=== PATIENT | female | born 1975 | race Native Hawaiian/Other Pacific Islander ===

== ENCOUNTER 2025-02-08 12:59 | Outpatient (REF) | payer OTHER, SELFPAY ==
--- NOTE | ~2025-02-08 | XR_ITS ---
EXAMINATION: XR LUMBOSACRAL SPINE CLINICAL INFORMATION: M54.50 - Low back pain, unspecified COMPARISON: None available. TECHNIQUE: AP and lateral views FINDINGS: Patient's large body habitus. Patient's motion artifact. Small marginal osteophyte formation at multiple levels of the lower thoracic and lumbar spine. No acute fracture or listhesis. No lytic or blastic lesions. There is a single neurostimulator electrode overlapping the left hemisacrum extending from L5 into left S3-4 level. There is a metallic reservoir in the left gluteal region. Vascular clips right upper quadrant abdomen. XR/XR lumbar spine 2-3V IMPRESSION: Mild multilevel thoracolumbar spondylosis. Single neurostimulator electrode at left S3-4 level. EXAMINATION: XR CERVICAL SPINE CLINICAL INFORMATION: M54.2 -cervicalgia. COMPARISON: None available. TECHNIQUE: AP, lateral, swimmer's projection and atlantoodontoid views. FINDINGS: Craniocervical junction is intact. Large marginal osteophyte formation and syndesmophyte formation at C4-5 and C5-6 level. Decreased intervertebral disc height at multiple levels pronounced at C5-6. No acute cortical disruption or malalignment. No lytic or blastic lesions. IMPRESSION: Multilevel spondylosis C4 C7, pronounced at C5-6. Electronically signed by: Irwin William MD 02/08/2025 02:39 PM [facility]
--- NOTE | ~2025-02-08 | XR_ITS ---
EXAMINATION: XR LUMBOSACRAL SPINE CLINICAL INFORMATION: M54.50 - Low back pain, unspecified COMPARISON: None available. TECHNIQUE: AP and lateral views FINDINGS: Patient's large body habitus. Patient's motion artifact. Small marginal osteophyte formation at multiple levels of the lower thoracic and lumbar spine. No acute fracture or listhesis. No lytic or blastic lesions. There is a single neurostimulator electrode overlapping the left hemisacrum extending from L5 into left S3-4 level. There is a metallic reservoir in the left gluteal region. Vascular clips right upper quadrant abdomen. XR/XR cervical spine 5V IMPRESSION: Mild multilevel thoracolumbar spondylosis. Single neurostimulator electrode at left S3-4 level. EXAMINATION: XR CERVICAL SPINE CLINICAL INFORMATION: M54.2 -cervicalgia. COMPARISON: None available. TECHNIQUE: AP, lateral, swimmer's projection and atlantoodontoid views. FINDINGS: Craniocervical junction is intact. Large marginal osteophyte formation and syndesmophyte formation at C4-5 and C5-6 level. Decreased intervertebral disc height at multiple levels pronounced at C5-6. No acute cortical disruption or malalignment. No lytic or blastic lesions. IMPRESSION: Multilevel spondylosis C4 C7, pronounced at C5-6. Electronically signed by: Irwin William MD 02/08/2025 02:39 PM [facility]
[2025-02-08 14:54] LABS: MANUAL DIFF FLAG NO
[2025-02-08 15:03] LABS: Hematocrit 46.2 % (37.0-47.0); Hemoglobin 15.4 g/dl (12.0-16.0); Imm Gran Abs Auto 0.04 X10*3/uL (0.00-0.03); Imm Gran Pct Auto 0.4 % (0.0-0.4); Lymphocytes Absolute Auto 2.6 X10*3/uL (1.2-4.9); Mean Corpuscular HGB Conc 33.3 g/dl (31.0-35.0); Mean Corpuscular Hemoglobin 30.0 pg (27.0-33.0); Mean Corpuscular Volume 90.1 fL (80.0-98.0); NRBC Abs Auto 0.000 X10*3/uL (0.0-0.012); NRBC Pct Auto 0.0 /100WBC (0.0-0.2); Platelet Count 302 X10*3/uL (160-400); Red Blood Count 5.13 X10*6/uL (4.20-5.50); White Blood Count 8.9 X10*3/uL (4.8-10.8)
[2025-02-08 15:31] LABS: Alanine Aminotransferase 53 U/L (0-31); Albumin Level 4.1 g/dL (3.5-5.0); Alkaline Phosphatase 119 U/L (39-117); Anion Gap 12 (12-20); Aspartate Amino Transferase 53 U/L (5-31); Blood Urea Nitrogen 8 mg/dL (9-16); Calcium 9.2 mg/dL (8.4-10.2); Carbon Dioxide 26 mmol/L (22-29); Chloride 104 mmol/L (96-108); Cholesterol 214 mg/dL (<200); Estimated Glomerular Filt Rate > 60; HDL Cholesterol 52 mg/dL (>40); Iron 96 mcg/dL (30-160); Percent Iron Saturation 28 % (15-50); Potassium 4.5 mmol/L (3.3-5.1); Sodium 137 mmol/L (135-145); Total Iron Binding Capacity 337 mcg/dL (228-428); Total Protein 7.8 g/dL (6.5-8.0); Triglycerides 132 mg/dL (<150); Unsaturated Iron Binding 241 ug/dL
[2025-02-08 15:46] LABS: Ferritin 44 ng/mL (10-250)
[2025-02-08 16:09] LABS: Microalbum/Creatinine Ratio Ur 12.8 ug/mg cr (<30)
== END 2025-02-08 13:00 | disposition home or self-care (01) ==
LOC: HO.LAB 12:59
PROVIDERS: PCP Internal Medicine; Visit Provider Internal Medicine
DX: I10 Essential (primary) hypertension (principal); M54.2 Cervicalgia; E55.9 Vitamin D deficiency, unspecified; D50.9 Iron deficiency anemia, unspecified; E78.5 Hyperlipidemia, unspecified; G43.909 Migraine, unspecified, not intractable, without status migrainosus; M54.50 Low back pain, unspecified; E11.65 Type 2 diabetes mellitus with hyperglycemia; G47.33 Obstructive sleep apnea (adult) (pediatric); G89.29 Other chronic pain; Z23 Encounter for immunization; Z13.31 Encounter for screening for depression; Z13.39 Encounter for screening examination for other mental health and behavioral disorders
CPT/HCPCS: 36415; 72050; 72100; 80053; 80061; 82043; 82306; 82570; 82728; 83036; 83540; 84443; 85025; 90471; 90656; 99212

== ENCOUNTER 2025-02-08 12:59 | Outpatient (AMB) | payer OTHER, SELFPAY ==
--- NOTE | 2025-02-08 13:02 | A.OFFPC_ITS ---
Vital Signs 02/08/25 13:07 Weight 254 lb BP 128/84 Blood Pressure Location Rt brachial Position Sitting Pulse 85 Pulse Source Pulse Oximeter Temp 96.4 F L Temp Source Temporal Artery Scan Pulse Oximetry (%) 96 Oxygen Delivery Method Room Air Intake Visit Reasons: 3 month f/u-Zoie pt Accompanied by: grandmother Allergies No Known Allergies Allergy (Verified 02/08/25 13:03) Medication List - Last Reconciled 02/08/25 by Aura Lino MD amitriptyline 30 mg PO BEDTIME ammonium lactate 12% topical DAILY clotrimazole 1% appl topical BID PRN empagliflozin (Jardiance) 10 mg PO QAM fluoxetine 20 mg PO BID fluvoxamine 100 mg PO QPM gabapentin 900 mg PO BID loratadine 10 mg PO DAILY metformin ER 500 mg PO BID metoprolol tartrate 50 mg PO BID montelukast 10 mg PO DAILY oxycodone 5 mg PO BEDTIME PRN rizatriptan mg PO trazodone 100 mg PO BEDTIME triamcinolone acetonide 0.1% appl topical Tobacco use date assessed: 02/08/25 Dental Screening Dental Screen Date: 02/08/25 Did you have a dental visit in the last 12 months?: Yes Was dental information given to patient?: Patient has dentist HPI HPI Comments History of Present Illness Details The patient is a 49-year-old female presenting to [facility] and for management of multiple chronic conditions. Type 2 Diabetes Mellitus: The patient reports her blood sugars are elevated, which she attributes to high levels of stress. She has had difficulty obtaining refills for her Jardiance from pharmacy. Chronic Pain: The patient has a history of fibromyalgia, managed with gabapentin. She also reports severe [id number] back pain with spasms, which recently was so severe she could barely walk and had to use a walker. She went to the emergency department at [facility] for this pain but left before receiving complete treatment, though she was given Toradol and Valium. Additionally, the patient complains of significant neck pain with pulling sensations and spasms, primarily on right side, which limits her ability to turn her head and makes daily activities like styling her hair difficult. She has had physical therapy for her neck in the past. Psychiatric Conditions: The patient reports extreme stress related to significant family issues, including taking custody of her nephew. She sees a therapist weekly and is managed by a psychiatrist. She has excoriation disorder (skin picking), for which she takes fluvoxamine, but notes it is not helping. Her sleep is poor, and she takes amitriptyline for sleep and migraines, as well as trazodone from her psychiatrist. She was previously on duloxetine and fluoxetine (Prozac); fluoxetine has been discontinued. Obstructive Sleep Apnea: The patient uses her CPAP machine every night and reports she is compliant. She is followed by a sleep specialist. Medical History: - Type 2 diabetes mellitus - Hypertension - Obstructive sleep apnea - Fibromyalgia - Chronic low back and neck pain - Migraines - Anxiety disorder - Excoriation (skin-picking) disorder - Insomnia Surgical History: - Sleeve gastrectomy (2018) Medications: - Gabapentin for fibromyalgia (prescribe d as three in the morning, three at night) - Amitriptyline 30 mg at bedtime for tae delma and sleep - Jardiance for diabetes - Metformin 500 mg twice a day for diabe elysia - Trazodone for sleep (prescribed by cindy chiatrist) - Fluvoxamine 100 mg and 50 mg for skin- picking disorder - Metoprolol 50 mg twice a day for hyper tension - Loratadine for allergies Social History: - The patient is experiencing extreme st ress due to family circumstances, including recently taking custody of her 15-year-old nephew following traumatic events. 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 - Reports eating only once a day due to stress. - Functional Status: Recently required a walker due to severe back pain. - Mental Health: Sees a therapist weekly . [facility] Medical History (Updated 02/08/25 @ 14:14 by Aura Lino MD) BAKARI (obstructive sleep apnea) Nonalcoholic fatty liver disease Neck pain Lower back pain Vitamin D deficiency Iron deficiency anemia Hyperlipidemia, unspecified Primary hypertension Migraines Fibromyalgia Diabetes mellitus Surgical History (Updated 02/08/25 @ 13:47 by Aura Lino MD) History of sleeve gastrectomy History of colonoscopy (~01/28/23) Family History (Updated 02/08/25 @ 13:14 by Aura Lino MD) Mother No problems noted. Father No problems noted. Other Dementia Social History Housing: Apartment Patient Tobacco Use Status: Never used Tobacco service: No Current occupational status: disabled Cognitive needs: Yes (cane) Hearing needs: No Vision needs: Yes (rx glasses) Questionnaire PHQ-9 Over the last 2 weeks, how often have you been bothered by any of the following problems? 1. Little interest or pleasure in doing things: more than half the days 2. Feeling down, depressed, or hopeless: more than half the days 3. Trouble falling or staying asleep, or sleeping too much: nearly every day 4. Feeling tired or having little energy: nearly every day 5. Poor appetite or overeating: nearly every day 6. Feeling bad about yourself - or that you are a failure or have let yourself or your family down: several days 7. Trouble concentrating on things, such as reading the newspaper or watching television: more than half the days 8. Moving or speaking so slowly that other people could have noticed. Or the opposite - being so fidgety or restless that you have been moving around a lot more than usual: not at all 9. Thoughts that you would be better off or of hurting yourself in some way: not at all Total score: 16 Depression Screening Interpretation: Positive Depression Screening Follow-up: In treatment Depression Screening Done: Yes Source: Developed by Drs. Lewis Lux, Colleen Vergara, Jere Velásquez and colleagues, with an educational kaiden from [employer]. Thrive Questionnaire Date Thrive assessed: 02/08/25 I am a: Patient What is your living situation today?: I have a steady place to live Within the past 12 months, did the food you bought not last and you didn't have the money to get more?: Often true Within the past 12 months, did you worry whether your food would run out before you got money to buy more?: Often true Do you have trouble paying for medicines?: No Do you have trouble getting transportation to medical appointments?: No Do you have trouble paying your heating and electricity bill?: No Do you have trouble taking care of your child, family member or friend?: Yes Do you have trouble with day-to-day activities such as bathing, preparing meals, shopping, managing finances, etc.?: Yes Are you currently unemployed and looking for a job?: No Are you interested in more education?: No THRIVE Score: 2 AUDIT C Alcohol Use Questionnaire (AUDIT-C) 2. How many drinks containing alcohol do you have on a typical day when you are drinking?: 1 or 2 3. How often do you have six or more drinks on one occasion?: Never Total Score: 0 ZUNILDA-7 AMB Questionnaire ZUNILDA-7 Date ZUNILDA - 7 assessed: 02/08/25 Source: Developed by Drs. Lewis Lux, Colleen Vergara, Jere Velásquez and colleagues, with an educational kaiden from [employer]. Review of Systems Narrative Review of Systems - Constitutional: Reports poor oral intake, eating only once per day. - Psychiatric: Reports significant stress ( a 1000 ), compulsive skin picking, and poor sleep. - Musculoskeletal: Reports severe, spasmodic pain in the [id number] back that recently required use of a walker. - Reports severe neck pain with pulling and spasms, limiting range of motion. - Neurological: Reports occasional numbness or tingling in the hands. Physical exam (Primary Care) Vital Signs: Last Vital Signs Temp 96.4 F L 02/08/25 13:07 Pulse 85 02/08/25 13:07 BP 128/84 02/08/25 13:07 Pulse Ox 96 02/08/25 13:07 Oxygen Delivery Method Room Air 02/08/25 13:07 Tobacco/Smoking Status: Tobacco use Status Tobacco use date assessed 02/08/25 02/08/25 13:04 Patient Tobacco Use Status Never used Tobacco 02/08/25 13:04 PHQ-9: PHQ-9 Score PHQ-9: Total score 16 02/08/25 14:14 Depression Screening Interpretation: Positive Depression Screening Follow-up: In treatment Thrive Assessment: Date of Thrive Assessment Date Thrive assessed 02/08/25 02/08/25 13:04 Narrative Physical Exam - General: Patient appears to have some inflammation on examination. - Cardiovascular: Normal rate and rhythm, normal heart sounds. A soft murmur is audible. - Lungs: Clear to auscultation bilaterally. - Abdomen: Soft, non-tender to palpation, normoactive bowel sounds. - Extremities: no edema bilaterally Office Procedures Flu Questionnaire Does the patient have a severe egg allergy?: No Does the patient have severe life threatening allergies?: No Does the patient have a fever or illness today?: No Has the patient ever had Guillain-Newfield Syndrome?: No Has the patient ever had any past reaction to a flu shot?: No Immunizations Fluarix [id number] (PF) 45 mcg (15 mcg x 3)/0.5 mL IM syringe Performing Provider: Aura Lino MD Performing Location: [facility] HD Administered by: Lin Mejía CMA on 02/08/25 13:19 Dose Route Admin Location Dispensed Lot Number Expiration Date NDC Instrument Man 0.5 mL IM Right Deltoid 0.5 mL [id number] 09/21/25 09771-351-23 [employer] VIS Given Date VIS Provided VIS Publication Date 02/08/25 Single Vaccine 24 Eligibility Eligibility Date Funding Source Not [facility] Eligible 02/08/25 Private Coding Level of Care Code Est Pt Level 4 (60742) Complex EM visit Add On G2211 Diagnoses Type 2 diabetes mellitus with hyperglycemia, without long-term current use of insulin E11.65 Diabetes mellitus complication status: with hyperglycemia Diabetes mellitus shelter insulin use: without wool washer feeder use Diabetes mellitus type: type 2 Migraine without status migrainosus, not intractable, unspecified migraine type G43.909 Intractability: not intractable Migraine type: unspecified Status migrainosus presence: without status migrainosus Primary hypertension I10 Hyperlipidemia, unspecified hyperlipidemia type E78.5 Hyperlipidemia type: unspecified Lower back pain M54.50 Back pain laterality: bilateral Chronicity: chronic Sciatica laterality: sciatica laterality unspecified Neck pain M54.2 BAKARI (obstructive sleep apnea) G47.33 Assessment & Plan Assessment & Plan (1) Diabetes mellitus: Code(s): E11.9 - Type 2 diabetes mellitus without complications Category: Medical Qualifiers: Diabetes mellitus complication status: with hyperglycemia Diabetes mellitus shelter insulin use: without shelter use Diabetes mellitus type: type 2 Qualified Code(s): E11.65 - Type 2 diabetes mellitus with hyperglycemia (2) Migraines: Code(s): G43.909 - Migraine, unspecified, not intractable, without status migrainosus Category: Medical Qualifiers: Intractability: not intractable Migraine type: unspecified Status migrainosus presence: without status migrainosus Qualified Code(s): G43.909 - Migraine, unspecified, not intractable, without status migrainosus (3) Primary hypertension: Code(s): I10 - Essential (primary) hypertension Category: Medical (4) Hyperlipidemia, unspecified: Code(s): E78.5 - Hyperlipidemia, unspecified Category: Medical Qualifiers: Hyperlipidemia type: unspecified Qualified Code(s): E78.5 - Hyperlipidemia, unspecified (5) Lower back pain: Code(s): M54.50 - Low back pain, unspecified Category: Medical Qualifiers: Back pain laterality: bilateral Chronicity: chronic Sciatica laterality: sciatica laterality unspecified (6) Neck pain: Code(s): M54.2 - Cervicalgia Category: Medical (7) BAKARI (obstructive sleep apnea): Code(s): G47.33 - Obstructive sleep apnea (adult) (pediatric) Category: Medical Plan Assessment and Plan 1. Medication Management - Plan: Taper and discontinue duloxetine 60 mg by taking it every other day. - The patient will investigate using [facility] for bubble-packed medications to improve organization and adherence. 2. Chronic Pain (Neck and Back) - The patient is experiencing a severe exacerbation of chronic back pain and functionally limiting chronic neck pain. - Her history with prior pain management clinics has been unsatisfactory. - Plan: Order cervical and lumbar spine X-rays for today. - Refer to Dr. Garcia for pain management. 3. Type 2 Diabetes Mellitus - Likely poorly controlled due to stress and medication non-adherence. - Plan: Order comprehensive labs including A1c, cholesterol panel, and a urine microalbumin - Refill Jardiance and metformin. 4. Psychiatric Conditions (Anxiety, Depression, Insomnia, Excoriation Disorder) - The patient is under extreme psychosocial stress. - Her skin picking continues despite being on fluvoxamine. - Plan: Patient to continue follow-up with her psychiatrist and therapist. 5. Follow-up - Plan: Follow up in 3 months to review progress with specialists. Plan - Discontinue duloxetine by tapering (taking every other day) due to interaction with fluvoxamine. - Order comprehensive labs today, including A1c, cholesterol, BMP, and a urine microalbumin. - Order X-rays of the lumbar and cervical spine - Place a referral to pain management/physiatry [place] location - Plan to follow up in 3 months. Discussion Notes I had a detailed discussion with the patient, acknowledging the significant life stressors affecting her health and the challenges she has faced with medication management. We reviewed her medication list and identified the need to taper her off duloxetine due to an interaction; I advised her not to stop it abruptly. We formulated a plan to simplify her regimen by sending 30-day prescriptions now and arranging a switch to bubble-packed medications through a new pharmacy. Patient Instructions - Go to the lab to have your blood drawn and provide a urine sample today. - Please also get the X-rays of your neck and lower back completed today at the imaging center there. - Begin to lower your dose of duloxetine by taking it every other day instead of every day. Do not stop taking it completely all at once. - Expect a call from pain management office within the next two weeks to schedule an appointment. Orders: Orders Complete Blood Count Auto Diff Today D50.9 - Iron deficiency anemia, unspecified, E11.9 - Type 2 diabetes mellitus without complications, E78.5 - Hyperlipidemia, unspecified, G43.909 - Migraine, unspecified, not intractable, without status migrainosus, I10 - Essential (primary) hypertension Lipid Panel Today D50.9 - Iron deficiency anemia, unspecified, E11.9 - Type 2 diabetes mellitus without complications, E78.5 - Hyperlipidemia, unspecified, G43.909 - Migraine, unspecified, not intractable, without status migrainosus, I10 - Essential (primary) hypertension Ferritin Today D50.9 - Iron deficiency anemia, unspecified, E11.9 - Type 2 diabetes mellitus without complications, E78.5 - Hyperlipidemia, unspecified, G43.909 - Migraine, unspecified, not intractable, without status migrainosus, I10 - Essential (primary) hypertension TSH reflex Free T4 Today D50.9 - Iron deficiency anemia, unspecified, E11.9 - Type 2 diabetes mellitus without complications, E78.5 - Hyperlipidemia, unspecified, G43.909 - Migraine, unspecified, not intractable, without status migrainosus, I10 - Essential (primary) hypertension Hemoglobin A1c Today D50.9 - Iron deficiency anemia, unspecified, E11.9 - Type 2 diabetes mellitus without complications, E78.5 - Hyperlipidemia, unspecified, G43.909 - Migraine, unspecified, not intractable, without status migrainosus, I10 - Essential (primary) hypertension Vitamin D 25-OH Total Today E55.9 - Vitamin D deficiency, unspecified XR lumbar spine 2-3V Today M54.50 - Low back pain, unspecified XR cervical spine 5V Today M54.2 - Cervicalgia Influenza [id number] Immunization Today Z23 - Encounter for immunization Comprehensive Met. Panel Today D50.9 - Iron deficiency anemia, unspecified, E11.9 - Type 2 diabetes mellitus without complications, E78.5 - Hyperlipidemia, unspecified, G43.909 - Migraine, unspecified, not intractable, without status migrainosus, I10 - Essential (primary) hypertension IRON PROFILE Today D50.9 - Iron deficiency anemia, unspecified, E11.9 - Type 2 diabetes mellitus without complications, E78.5 - Hyperlipidemia, unspecified, G43.909 - Migraine, unspecified, not intractable, without status migrainosus, I10 - Essential (primary) hypertension Microalbumin, Random (w Creat) Today D50.9 - Iron deficiency anemia, unspecified, E11.9 - Type 2 diabetes mellitus without complications, E78.5 - Hyperlipidemia, unspecified, G43.909 - Migraine, unspecified, not intractable, without status migrainosus, I10 - Essential (primary) hypertension Referrals Physiatry Referral M54.2 - Cervicalgia, M54.50 - Low back pain, unspecified Medications: New empagliflozin (Jardiance) 10 mg PO QAM 30 tabs 5RF amitriptyline usually prescribed by neurologist 30 mg (3 x 10 mg) PO BEDTIME 30 tabs 0RF metoprolol tartrate 50 mg PO BID 60 tabs 5RF 30 days rizatriptan 10 mg PO ONCE 10 tabs 5RF gabapentin 900 mg (3 x 300 mg) PO BID 180 caps 5RF 30 days metformin ER 500 mg PO BID 60 tabs 5RF
[2025-02-08 13:07] VITALS: BP 128/84; PULSE 85; TEMP 35.8; O2SAT 96
== END 2025-02-08 14:00 | disposition home or self-care (01) ==
LOC: HO.HMCHD 12:59
PROVIDERS: PCP Internal Medicine; Visit Provider Internal Medicine
DX: E11.65 Type 2 diabetes mellitus with hyperglycemia (principal); G43.909 Migraine, unspecified, not intractable, without status migrainosus; I10 Essential (primary) hypertension; E78.5 Hyperlipidemia, unspecified; M54.50 Low back pain, unspecified; M54.2 Cervicalgia; G47.33 Obstructive sleep apnea (adult) (pediatric); Z23 Encounter for immunization

== ENCOUNTER → 2025-02-08 14:13 | Outpatient (BNV) | payer OTHER, SELFPAY | PROVIDERS: PCP Internal Medicine; Visit Provider Radiology Diagnostic Radiology | DX: M47.815 Spondylosis without myelopathy or radiculopathy, thoracolumbar region (principal); Z96.82 Presence of neurostimulator | CPT/HCPCS: 72100 ==

== ENCOUNTER 2025-03-09 09:08 | Outpatient (AMB) | payer OTHER, SELFPAY ==
--- NOTE | 2025-03-09 09:15 | A.PHYSOV_ITS ---
Vital Signs 03/09/25 09:17 Height 5 ft 3 in Weight 250 lb BMI 44.3 Intake Visit Reasons: [facility] [place] worsened [place] pain Intake Note: Patient is a 49 year old female here today for worsening back and neck pain. Forging Operator Required: No Allergies No Known Allergies Allergy (Verified 03/09/25 09:19) HPI Comments Details: History of Present Illness The patient is a 49 year old female presenting with chronic right-sided neck pain which she describes as her biggest problem. The pain is constant, occurring 80-90% of the week, and at times is so severe she cannot move her neck. She experiences cramping and applies pressure to the area for relief. Stretching exercises do not alleviate her symptoms. The pain significantly impacts her daily activities, requiring her to readjust her body position to have conversations and making it difficult to care for her grandchildren. 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 She has a history of right shoulder pain and rotator cuff issues for over three years, for which she received an injection that did not help her neck pain. The patient reports a history of back issues but states the neck pain is more troublesome. Past interventions include taking amitriptyline and gabapentin. She has not had prior physical therapy or professional healthcare representative for her neck. She does not take ibuprofen or Tylenol as they have not been effective in the past. The patient has a neurostimulator for urination and has previously had an MRI after turning the device off. I reviewed the referring provider's no prior to consultation. Pain Description - Location: Primarily on the right side of the neck. - Quality: Described as a constant hurt that gets really crampy with tension felt throughout her whole right side. - Severity: Rated as a 6 out of 10 on the day of the visit. - Frequency: Occurs 80-90% of the week. - Exacerbating Factors: Worsened by movement, specifically turning her head to the left. - Relieving Factors: Applying pressure to the area and tilting her head to the right. - Radiation: The pain does not radiate down her arm. - Associated Symptoms: Associated with right shoulder problems. - Impact on Function: Interferes with her ability to drive, hold conversations, and interact with her grandchildren. Results - X-ray Lumbar Spine (02/08/2025): Mild multilevel thoracolumbar spondylosis. Neurostimulator electrode is noted at the left S3-4 level. - X-ray Cervical Spine (date not specified): Posterior osteophyte formation resulting in neuroforaminal narrowing on the right at C4-5 and C5-6, and on the left at C4-5 and C6-7. [facility] Medical History Transaminitis BAKARI (obstructive sleep apnea) Nonalcoholic fatty liver disease Neck pain Lower back pain Vitamin D deficiency Iron deficiency anemia Hyperlipidemia, unspecified Primary hypertension Migraines Fibromyalgia Diabetes mellitus Surgical History History of sleeve gastrectomy History of colonoscopy (~01/28/23) Family History Mother No problems noted. Father No problems noted. Other Dementia Social History Housing: Apartment Patient Tobacco Use Status: Never used Tobacco service: No Current occupational status: disabled Cognitive needs: Yes (cane) Hearing needs: No Vision needs: Yes (rx glasses) Review of Systems Narrative Review of Systems - Musculoskeletal: Reports constant right-sided neck pain that is crampy with tension, right shoulder pain, and back pain. - Neurological: Denies radiation of neck pain into her arm. Physical Exam Exam Exam: Physical Exam - Musculoskeletal: Tenderness to palpation over the right side of the neck. Neck range of motion is limited with rotation to the left due to pain, with an audible crack noted. Tension is reported with flexion. There is mild pain in the right shoulder with abduction. No radiation of pain into the arm with Spurling's maneuver. - Neurological: Sensation is intact and equal in both arms. Motor strength is full in the upper extremities. Vital Signs: BMI result Body Mass Index 44.3 Assessment & Plan Assessment & Plan (1) Neck pain: Code(s): M54.2 - Cervicalgia Category: Medical Plan Pain Management - Affect: The patient states the neck pain is super annoying and interferes quite a bit with her life, making it difficult to interact with family. - Analgesia: Current pain level is 6/10. She is taking gabapentin and am itriptyline. She reports that qnkd-[id number]-surkowg medications like ibuprofen and Tylenol do not help. - Activities of Daily Living: Pain limits her neck movement, which affects her ability to drive, hold conversations, and be the fun grandma with her grandchildren. Plan Patient was informed and verbally consented to the use of an ambient scribe for clinic note documentation during this visit. 1. Cervicalgia The patient's primary complaint is chronic right-sided neck pain, which is worse with movement and limits her daily activities. An MRI of the cervical spine is necessary to fully evaluate the etiology of her symptoms, but insurance companies typically require a course of conservative treatment first. The plan is to start with physical therapy, which the patient prefers over professional healthcare representative. A prescription for physical therapy will be provided. If her symptoms do not improve after completing therapy, she will follow up for reassessment and to obtain an MRI of her neck. 2. Right Shoulder Pain The patient reports a history of rotator cuff issues and associated right shoulder pain, though this is a secondary complaint to her neck pain. The prescribed physical therapy for the cervical spine will be the primary focus, as the neck is her main issue and may also address related shoulder complaints. Discussion Notes I discussed with the patient that the best way to determine the cause of her chronic neck pain is with an MRI of her neck. I explained that most insurance companies require a trial of conservative therapy, such as physical therapy, for four to six weeks before they will approve an MRI. We discussed the options of physical therapy versus professional healthcare representative, and she stated a preference for physical therapy. I will provide her with a prescription for physical therapy and a list of facilities. I instructed her to return for a follow-up visit after completing the course of therapy if she is not satisfied with the results, at which point we will order the MRI. Patient Instructions - We will start by having you attend physical therapy for your neck pain. - I will give you a prescription for physical therapy and a list of places you can go. - Please call a physical therapy office to schedule your appointments. - If your neck is not better after you finish therapy, please come back to see me. - At that follow-up visit, we will arrange for an MRI scan of your neck to investigate the pain further. Orders: Orders PT Evaluation and Treatment 03/09/25 M54.2 - Cervicalgia Coding Level of Care Code Tele New Pt Level 4 (88366) Diagnoses Neck pain M54.2
[2025-03-09 09:17] VITALS: BMI 44.3
--- OUTSIDE RECORDS SUMMARY | 2025-03-09 10:25 | XMS_ITS | Patient Health Record ---
Author Organization [facility] Address [address] [place] [address] Care Team Providers Care Ict Security Specialist Name Role Phone VISHNU DENNY MD Primary Care Provider DARIN Vernon Unavailable [phone] Allergies Allergen (clinical drug ingredient) Drug/Non Drug Allergy documented on EMR Reaction Allergy Type Onset Date Status pregabalin Lyrica Unknown Drug Allergy Active Reason For Referral No Information Medications Medication SIG (Take, Route, Frequency, Duration) Notes Start Date End Date Status Magnesium 400MG 1 TABLET BID NAME ONLY Conversion from Multum Review and pick correct strength-formulati on from K[employer] options. If intended option is not shown, discontinue and re-order from Quick Search. Active Metoprolol Tartrate 100 MG Tablet 1 tab(s) orally 2 times a day; Duration: 30 day(s) Active Nabumetone 500 MG Tablet 2 tab(s) orally once a day; Duration: 30 day(s) Active Montelukast Sodium 10 MG Tablet 1 tab(s) orally once a day; Duration: 30 day(s) Active Gabapentin 300 MG Capsule 3 cap(s) orally 3 times a day Active Topiramate 50 MG Tablet 1 tab(s) orally once daily Not-Taking DULoxetine HCl 60 MG Capsule Delayed Release Particles 1 cap(s) orally once a day; Duration: 30 day(s) Active Biotin NAME ONLY Conversion from Multum Review and pick correct strength-formulati on from [place] options. If intended option is not shown, discontinue and re-order from Quick Search. Active B-12 1000 MCG Tablet 1 tab(s) orally once a day; Duration: 30 day(s) Active CALCIUM CITRATE AND VITAMIN D 500 MG/ 500 UNITS TABLET 1 TAB ORALLY 2 TIMES A DAY; Duration: 30 DAYS *Please review for potential replacement for e-prescription and drug interaction check* Active Loratadine 10 MG Capsule 1 cap(s) orally once a day Active Riboflavin 400 MG Capsule 1 cap(s) orally once a day Active Centrum THERAPEUTIC MULTIPLE VITAMINS WITH MINERALS TABLET 1 TAB(S) ORALLY ONCE A DAY; Duration: 30 DAY(S) NAME ONLY Conversion from Multum Review and pick correct strength-formulati on from K[employer]ent options. If intended option is not shown, discontinue and re-order from Quick Search. 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 - [employer] asbestos exposure: no alcohol use: no drug use: no Coffee/Tea/Soda: yes soda rarely Marital Status experience no Living with boyfriend smokers in household no Problems Problem Type SNOMED Code ICD Code Onset Dates Problem Status W/U Status Risk Notes Problem Post gastrointestinal tract surgery hypoglycemia (disorder) (498120545) Hypoglycemia after GI (gastrointestin al) surgery (K91.2) Active confirmed Plan Of Treatment No Information Insurance Providers Payer Name Payer Address Payer Phone Subscriber Number Group Number Insured Name Patient Relationship to Insured Coverage Start Date Coverage End Date [facility] [address] [place] [phone] [id number] BILLIE LOPEZ Self - patient is the insured Medical (General) History Medical History History ICD Code allergies Arthritis depression Type 2 diabetes - dx ~ 2017/2017 - rx gl ipizide x < 1 yr fibromyalgia headaches/migraines - Athreya hypertension Kidney stones - following gastric sleeve - Dr. Odonnell BAKARI - using CPAP Surgical History Surgery Date(Month/Year) sleeve gastrectomy, laparoscopic 2019 uterine ablation kidney stones 2019 cholecystectomy ankle surgery
--- OUTSIDE RECORDS SUMMARY | 2025-03-09 10:25 | XMS_ITS | Clinical Summary ---
Author Organization [facility] Address [address] [place] [address] Care Team Providers Care Apron Operator Name Role Phone Vishnu Denny MD Primary Care Provider [phone] Surgical History Surgery Date Site/Laterality Comments ANKLE SURGERY PROCEDURE: HISTORICAL ANKLE SURGERY OTHER SURGICAL HISTORY PROCEDURE: HISTORICAL ESSURE (BILATERAL OCCLUSION FALLOPIAN TUBES-PERMA) Medical History Medical History Date Comments Diabetes mellitus type 2 in obese 10/2017 DX:Diabetes mellitus type 2 in obese BAKARI (obstructive sleep apnea) DX :BAKARI (obstructive sleep apnea) History of PCOS DX:History of PC OS Vitamin D deficiency DX:Vitamin D deficiency Social History Tobacco Use Types Packs/Day Years Used Date Smoking Tobacco: Never Smokeless Tobacco: Never Alcohol Use Standard Drinks/Week Comments Yes 0 (1 standard drink = 0.6 oz pur e alcohol) Comments Unknown Sex and Gender Information Value Date Recorded Sex Assigned at Not on file Legal Sex Female 8:55 PM EST Gender Identity Not on file Sexual Orientation Not on file Plan of Treatment Health Maintenance Due Date Last Done Comments Colorectal Cancer Screening: Colonoscopy 1977 DTaP,Tdap,and Td Vaccines (1 - Tdap) 1996 Hepatitis B Vaccines (1 of 3 - 19+ 3-dose series) 1996 Cervical Cancer Screening: P ap Smear 1998 HIV Screening 03/03/2022 Hepatitis C Screening 03/03/2022 Social Influencers of Health Screening 03/03/2022 Breast Cancer Screening 07/31/2022 08/01/19 21, 01/30/2019, 01/17/2018 Depression Screening 03/25/2024 COVID-19 Vaccine ( - 2024-2 6 season) 2024 Influenza Vaccine (#1) 2024 2018 RSV Immunization Adult Patients (1 - 1-dose 75+ series) 2052 HIB Vaccines Aged Out No longer eligi ble based on patient's age to complete this topic HPV Vaccines Aged Out No longer eligi ble based on patient's age to complete this topic Hepatitis A Vaccines Aged Out No long er eligible based on patient's age to complete this topic IPV Vaccines Aged Out No longer eligi ble based on patient's age to complete this topic MMR Vaccines Aged Out No longer eligi ble based on patient's age to complete this topic Meningococcal ACWY Vaccine Aged Out N o longer eligible based on patient's age to complete this topic Meningococcal B Vaccine Aged Out No l onger eligible based on patient's age to complete this topic Pneumococcal Vaccine: Pediatrics (0 to 5 Years) and At-Risk Patients (6 to 49 Years) Aged Out No longer eligible b ased on patient's age to complete this topic RSV Immunization Patients Under 20 months Aged Out No longer eligible b ased on patient's age to complete this topic Varicella Vaccines Aged Out No longer eligible based on patient's age to complete this topic Procedures Procedure Name Priority Date/Time Associated Diagnosis Comments [facility] SCREENING DIGITAL Routine 07/31/2020 9:13 AM EDT Encounter for screening mammogram for malignant neoplasm of breast from Last 3 Months or Most Recently Relevant to Health Maintenance Results * [facility] SCREENING DIGITAL (07/31/2020 9:13 AM EDT) Anatomical Region Laterality Modality Mammography 07/28/2020 8:15 AM EDT Narrative 07/31/2020 9:13 AM EDT [facility] Diagnostic Imaging Department [address] [place] [address] Patient: DOROTHY LOPEZSSICA /Age/Sex: 1975 - 44 - F Unit#: [id number] Location/Status: SPDIMAM/REG CLI Mnemonic/Ordering Site: DIGSC/SPMAM Ordering Physician: VISHNU DENNY MD Bruno Screening Digital - 07/30/20 - 1114 INDICATION: SCREENING COMPARISON: [facility] mammograms dating back to 01/17/2018 TECHNIQUE: CC and MLO views of the breasts were obtained, using full field digital mammography with 3D tomosynthesis views in the MLO projection. Computer aided detection with the [employer].2-H was employed. FINDINGS: The breasts are almost entirely composed of fat. No suspicious masses, suspicious microcalcifications, or areas of architectural distortion are identified. There are no secondary signs of breast malignancy. Rare benign-appearing breast calcifications are present bilaterally. IMPRESSION: No specific mammographic evidence of breast malignancy. Lack of an imaging correlate should not deter or delay biopsy of a clinically significant palpable finding. BI-RADS - Category 2 - Benign finding 3342F, 7025F Annual screening mammography is recommended. Patient entered into a reminder system with a target date for the next mammogram. [id number] / [id number]) , [id number] Dictating Physician: SHERRI VILLAFANA MD Electronically Signed by: SHERRI VILLAFANA MD Dic Date/Time: 07/31/20908 Sign date/Time: 07/31/20912 Procedure Note Sherri Villafana MD - 03/13/2022 [facility] Diagnostic Imaging Department [address] [place] [id number] Patient: BILLIE LOPEZ/Age/Sex: 1975 - 44 - F Unit#: [id number] Location/Status: SPDIMAM/REG CLI Mnemonic[facility] Order[facility] Physician: VISHNU DENNY MD [facility] Screening Digital - 07/30/20 - 1114 INDICATION: SCREENING COMPARISON: [facility] mammograms dating back to 01/17/2018 TECHNIQUE: CC and MLO views of the breasts were obtained, using full field digital mammography with 3D tomosynthesis views in the MLO projection. Computer aided detection with the [employer] 7.2-H was employed. FINDINGS: The breasts are almost entirely composed of fat. No suspicious masses, suspicious microcalcifications, or areas ofarchitectural distortion are identified. There are no secondary signs of breastmalignancy. Rare benign-appearing breast calcifications are present bilaterally. IMPRESSION: No specific mammographic evidence of breast malignancy. Lack of an imaging correlate should not deter or delay biopsy of aclinically significant palpable finding. BI-RADS - Category 2 - Benign finding 3342F, 7025F Annual screening mammography is recommended. Patient entered into a reminder system with a target date for the next mammogram. [id number] / [id number]) , [id number] Dictating Physician: SHERRI VILLAFANA MD Electronically Signed by: SHERRI VILLAFANA MD Dic Date/Time: 07/31/20908 Sign date/Time: 07/31/20912 us Vishnu Denny MD IMG BI PROCEDURES Final Re sult from Last 3 Months or Most Recently Relevant to Health Maintenance Care Teams Apron Operator Relationship Specialty Start Date End Date Vishnu Denny MD [address] [place] [id number] PCP - General Internal Medicine 09/10/17
== END 2025-03-09 09:54 | disposition home or self-care (01) ==
LOC: HO.HPHYS 09:08
PROVIDERS: PCP Internal Medicine; Visit Provider Physician Assistant
DX: M54.2 Cervicalgia (principal)
CPT/HCPCS: 99204

== ENCOUNTER → 2025-03-09 09:08 | Outpatient (BNVA) | payer OTHER, SELFPAY | PROVIDERS: PCP Internal Medicine; Visit Provider Physician Assistant | DX: M54.2 Cervicalgia (principal); G89.29 Other chronic pain; M25.511 Pain in right shoulder | CPT/HCPCS: 99202 ==